=== PATIENT | female | born 1990 | race Caucasian/White ===

== ENCOUNTER 2019-07-26 08:16 | Emergency (ER) | payer MEDICAID ==
--- NOTE | 2019-07-26 08:25 | ED ---
Lower Extremity - HPI Summary HPI Summary: 29-year-old female with no significant past medical history presents to the emergency department today after a mechanical fall this morning. She states she was coming down the stairs and reached the floor at the bottom when she slipped on a toy which caused her to roll her right ankle and fall. She states she has 5 out of 10 pain to the lateral right ankle and she is unable to ambulate or weight-bear. She denies use of anticoagulation. She denies syncope or other trauma associated with her fall. She denies fever, chills, knee pain, shortness of breath, chest pain, abdominal pain, pain with urination. - History of Current Complaint Stated Complaint: FALL RIGHT ANLKE PAIN Time Seen by Provider: 07/26/19 08:25 Hx Obtained From: Patient Mechanism Of Injury: Fall From A Standing Position Onset of Pain: Immediate Onset/Duration: Hours Severity Initially: Moderate Severity Currently: Moderate Pain Intensity: 5 Pain Scale Used: 0-10 Numeric Timing: Constant Location: Is Discrete @ - right lateral ankle Associated Signs And Symptoms: Positive: Swelling. Negative: Redness, Bruising , Knee Pain Aggravating Factor(s): Standing, Ambulation, Movement, Weight Bearing, Stairs Alleviating Factor(s): Rest, Elevation, Ice - Allergies/Home Medications Allergies/Adverse Reactions: Allergies Allergy/AdvReac Type Severity Reaction Status Date / Time No Known Allergies Allergy Verified 07/26/19 08:27 Review of Systems Constitutional: Negative Eyes: Negative ENT: Negative Cardiovascular: Negative Respiratory: Negative Gastrointestinal: Negative Genitourinary: Negative Positive: Arthralgia, Decreased ROM, Edema Skin: Negative Neurological: Negative Psychological: Normal All Other Systems Reviewed And Are Negative: Yes Physical Exam - Summary Physical Exam Summary: Inspection of the right ankle reveals no ecchymosis however there is moderate amount of edema to the right lateral malleolus. Her cells P his pulse 2+ bilaterally with brisk capillary refill bilaterally. She has decreased range of motion in the right ankle due to pain. There is no tenderness to palpation of the talus bone, metatarsal bones, tarsal bones, medial malleolus however there is significant tenderness palpation to the lateral malleolus. Anterior posterior drawer of the ankle are negative. Triage Information Reviewed: Yes Vital Signs Reviewed: Yes Appearance: Positive: Well-Appearing, No Pain Distress, Well-Nourished Skin: Positive: Warm, Skin Color Reflects Adequate Perfusion Eyes: Positive: EOMI, HARRISON ENT: Positive: Hearing grossly normal Respiratory/Lung Sounds: Positive: Clear to Auscultation, Breath Sounds Present Cardiovascular: Positive: RRR, S1, S2 Neurological: Positive: Sensory/Motor Intact, Alert, Oriented to Person Place, Time, Abnormal Gait Psychiatric: Positive: Normal AVPU Assessment: Alert Procedures - Sedation Patient Received Moderate/Deep Sedation with Procedure: No - Splinting Right Lower Extremity Pre-Made Type: aircast Pre-Proc Neuro Vasc Exam: normal Post-Proc Neuro Vasc Exam: normal Splint Applied by Provider: Devendra Duran Lower Extremity Course/Dx - Course Course Of Treatment: Patient was evaluated in the emergency department for right ankle pain. The patient seen and evaluated her vital signs were stable and she was afebrile. An x-ray of the right ankle was obtained which revealed a small chip fracture of the lateral malleolus. It is also likely she sustained a lateral ankle sprain as well. She is placed in an Aircast and given crutches and told to treat her injury with RICE therapy and ibuprofen for pain. She was told to follow-up with her primary care provider or orthopedics within 7 days for further evaluation and management of her symptoms. She was told to return to emergency department immediately if she developed any new or worsening symptoms. Patient agreed with this plan. - Diagnoses Differential Diagnosis/HQI/PQRI: Positive: Fracture (Closed), Sprain, Strain Provider Diagnoses: Right ankle sprain, Ankle fracture, right Discharge ED - Sign-Out/Discharge Documenting (check all that apply): Patient Departure - Discharge Plan Condition: Stable Disposition: HOME Patient Education Materials: Ankle Fracture (ED), R.I.C.E. Treatment (ED) Referrals: No Primary Care Phys,NOPCP [Primary Care Provider] - Omar Louise MD [Medical Doctor] - 5 Days Additional Instructions: You were seen in the emergency department for right ankle pain. An x-ray was done which showed a small fracture to the lateral malleolus. It is also likely you sustained a right ankle sprain. This fracture is small and will heal on its own. Please rest, ice, elevate your ankle for alleviation of symptoms. Please keep your ankle in the air cast splint and use your crutches as needed. You may also take ibuprofen 600 mg every 6 hours as needed for pain. Please follow up with your primary care physician or an orthopedist within 7 days for further evaluation and management of your ankle. Weight-bear as tolerated. Please return to the emergency department immediately if you develop any new or worsening symptoms. - Billing Disposition and Condition Condition: STABLE Disposition: Home
[2019-07-26] MEDS ORDERED: Ibuprofen TAB* 600 MG PO ONE (09:03)
[2019-07-26 09:34] VITALS: BP 129/79
== END 2019-07-26 09:30 | disposition home or self-care (01) ==
LOC: ED 08:16
DX: S82.61XA Displaced fracture of lateral malleolus of right fibula, initial encounter for closed fracture (principal); W18.09XA Striking against other object with subsequent fall, initial encounter; Y92.009 Unspecified place in unspecified non-institutional (private) residence as the place of occurrence of the external cause
CPT/HCPCS: 99282; A9270-GY

== ENCOUNTER 2019-10-21 21:00 | Emergency (ER) | payer MEDICAID, OTHER ==
--- OUTSIDE RECORDS SUMMARY | 2019-10-21 21:06 | XMS REPORT | Continuity of Care Document ---
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 Problems Description No Information Available Social History Type Date Description Comments Sex Unknown ETOH Use Denies alcohol use Tobacco Use Start: Unknown Patient has never smoked Smoking Status Reviewed: 09/23/19 Patient has never smoked Exercise Type/Frequency Exercises sporadically Allergies, Adverse Reactions, Alerts Active Allergies Reaction Severity Comments Date Adhesive 08/04/2019 Medications Description No Active Medications Immunizations Description No Information Available Vital Signs Date Vital Result Comment 09/23/2019 10:15am Heart Rate 100 /min BP Systolic 130 mmHg BP Diastolic 80 mmHg Respiratory Rate 18 /min Body Temperature 98.6 F Pain Level 0 08/04/2019 1:20pm Height 66 inches 5'6" Weight 245.50 lb Heart Rate 108 /min BP Systolic 118 mmHg BP Diastolic 70 mmHg Respiratory Rate 16 /min Pain Level 6 BMI (Body Mass Index) 39.6 kg/m2 Results Description No Information Available Procedures Description No Information Available Medical Devices Description No Information Available Encounters Type Date Location Provider Dx Diagnosis Office Visit 08/04/2019 [facility] Omar Louise, S93.491A Sprain of other 1:15p at [place] ligament of right ankle, initial encounter Assessments Date Code Description Provider 09/23/2019 S93.491A Sprain of other ligament of right ankle, Omar Louise MD initial encounter 08/04/2019 S93.491A Sprain of other ligament of right ankle, Omar Louise MD initial encounter Plan of Treatment 09/23/2019 - LUIS ENRIQUE [id number] Sprain of other ligament of right ankle, initial encounterFollow up:Follow Up: As needed Functional Status Description No Information Available Mental Status Description No Information Available Referrals Description No Information Available
[2019-10-21 21:23] VITALS: BP 153/103
--- NOTE | 2019-10-21 22:09 | UC ---
Throat Pain/Nasal Buzz HPI - HPI Summary HPI Summary: 1 WEEK OF SORE THROAT AND PAIN WITH SWALLOWING. PATIENT HAS LOST HER VOICE. STATES SHE HAD SOME SINUS PAIN INITIALLY BUT THAT HAS SINCE RESOLVED. NO FEVER. NO NAUSEA/VOMITING. NO COUGH OR EAR PAIN. NO LONGER HAS TONSILS. - History of Current Complaint Chief Complaint: UCGeneralIllness Stated Complaint: SORE THROAT Time Seen by Provider: 10/21/19 21:44 Hx Obtained From: Patient Hx Last Menstrual Period: 10/10/19 Onset/Duration: Gradual Onset, Lasting Days, Still Present Severity: Moderate Pain Intensity: 7 Pain Scale Used: 0-10 Numeric Cough: None Associated Signs & Symptoms: Positive: Hoarseness - Allergies/Home Medications Allergies/Adverse Reactions: Allergies Allergy/AdvReac Type Severity Reaction Status Date / Time No Known Allergies Allergy Verified 10/21/19 21:17 Home Medications: Home Medications predniSONE 20 mg TAB [Deltasone 20 MG TAB*] 40 mg PO DAILY #8 tab 10/21/19 [Rx] PMH/Surg Hx/FS Hx/Imm Hx Previously Healthy: Yes - Surgical History Surgery Procedure, Year, and Place: T&A. right knee surgery - Family History Known Family History: Positive: Non-Contributory - Social History Alcohol Use: None Substance Use Type: None Smoking Status (MU): Never Smoked Tobacco Review of Systems All Other Systems Reviewed And Are Negative: Yes Constitutional: Positive: Negative ENT: Positive: Sore Throat Respiratory: Positive: Negative Cardiovascular: Positive: Negative Gastrointestinal: Positive: Negative Physical Exam Triage Information Reviewed: Yes Appearance: Well-Appearing, No Pain Distress, Well-Nourished Vital Signs: Initial Vital Signs Temp 98.2 F 10/21/19 21:17 Pulse 115 10/21/19 21:17 Resp 18 10/21/19 21:17 BP 153/103 10/21/19 21:17 Pulse Ox 97 10/21/19 21:17 Laboratory Tests 10/21/19 21:47 Group A Strep Rapid Negative Vital Signs Reviewed: Yes Eyes: Positive: Conjunctiva Clear ENT: Positive: Hearing grossly normal, Pharynx normal, Other - RIGHT TM SLIGHTLY ERYTHEMATOUS Neck: Positive: Supple, Nontender, No Lymphadenopathy Respiratory Exam: Normal Cardiovascular Exam: Normal Abdomen Description: Positive: Soft Musculoskeletal: Positive: No Edema Neurological: Positive: Alert Psychological: Positive: Age Appropriate Behavior Skin: Negative: Rashes Throat Pain/Nasal Course/Dx - Course Course Of Treatment: STREP NEGATIVE. RIGHT TM EVER SO SLIGHTLY ERYTHEMATOUS WHEN COMPARED TO THE LEFT HOWEVER PATIENT HAS NO EAR PAIN AND NO FEVER. ADVISED TO BE VIGILANT OF HER SYMPTOMS. WILL NOT TREAT FOR OTITIS AT THIS TIME. LIKELY VIRALLY MEDIATED SYMPTOMS THAT SHOULD RESOLVE ON THEIR OWN. WILL GIVE A SHORT BURST OF PREDNISONE TO HELP WITH THE INFLAMMATION. FOLLOW-UP IF NEEDED. - Differential Dx/Diagnosis Provider Diagnosis: Acute laryngitis Discharge ED - Sign-Out/Discharge Documenting (check all that apply): Patient Departure All imaging exams completed and their final reports reviewed: No Studies - Discharge Plan Condition: Stable Disposition: HOME Prescriptions: predniSONE 20 mg TAB [Deltasone 20 MG TAB*] 40 mg PO DAILY #8 tab Patient Education Materials: Laryngitis (ED) Referrals: [facility] [Outside] - If Needed Additional Instructions: STREP TEST NEGATIVE. YOUR SYMPTOMS ARE LIKELY VIRALLY MEDIATED AND SHOULD RESOLVE WITH TIME. NO INDICATION FOR ANTIBIOTICS AT PRESENT. REST, HYDRATE, OTC MEDS NEEDED. WILL TREAT WITH PREDNISONE THIS MAY HELP WITH THE INFLAMMATION. FOLLOW-UP IF YOU'RE NOT IMPROVING OVER THE NEXT FEW DAYS. CALL THE NUMBER BELOW FOR ASSISTANCE IN ESTABLISHING WITH A PCP An additional resource available to assist in finding the appropriate physician for your health care needs is [facility] ([facility]). You may contact them by calling [phone] - Billing Disposition and Condition Condition: STABLE Disposition: Home
== END 2019-10-21 22:15 | disposition home or self-care (01) ==
LOC: UCEAST 21:00
DX: J04.0 Acute laryngitis (principal)
CPT/HCPCS: 87651; 99212; G0463; J7512

== ENCOUNTER 2023-07-24 08:17 | Inpatient (IN) ==
[2023-07-24] MEDS ORDERED: Buffered Lidocaine 1% SYRIN 1 ml INTRADERM ONE (09:32)
[2023-07-24] MEDS ORDERED: Lidocaine 1% VIAL 10 MG/ML 30 ML VIAL INJ PRN (09:32)
[2023-07-24] MEDS ORDERED: Lactated Ringers 1000 ml BAG 1,000 ML IV ONE ×2 (09:32→21:59)
[2023-07-24] MEDS: Lactated Ringers 1000 ml BAG 1,000 ML IV SCH ×3 (10:00→21:45)
[2023-07-24] MEDS: Oxytocin in LR 20,000 MILLI.UNIT/1,000 ML BAG IV SCH (10:02)
[2023-07-24 10:15] LABS: ABS Lymphocytes 1.9 10^3/uL (1.0-4.8); ABS Monocytes 0.7 10^3/uL (0.0-0.9); ABS Neutrophils 6.3 10^3/uL (1.5-7.6); ABS Nucleated RBC 0.01 10^3/ul; Eosinophil % 0.5 %; Hematocrit 36.5 % (35-45); Hemoglobin 12.7 g/dL (11.5-14.3); Lymphocyte % 21.5 %; Mean Corpuscular Hemoglobin 30.3 pg (27-33); Mean Corpuscular Hgb Conc 34.8 g/dL (31-36); Mean Corpuscular Volume 87.3 fL (80-97); Mean Platelet Volume 8.3 fL (7.5-11.2); Nucleated Red Blood Cells % 0.1 %/100WBC (0.0-0.8); Platelet Count 264 10^3/uL (150-450); Red Blood Count 4.18 10^6/uL (3.63-4.92); Red Cell Distribution Width 13.8 % (12-17)
[2023-07-24 12:46] LABS: Albumin 3.6 g/dL (3.2-5.2); Albumin/Globulin Ratio 1.3 (1-3); Calcium 9.4 mg/dL (8.6-10.3); Creatinine, Serum 0.67 mg/dL (0.51-0.95); Globulin 2.7 g/dL (2-4); Potassium 3.9 mmol/L (3.5-5.0); Total Bilirubin 0.3 mg/dL (0.2-1.0); Total Protein 6.3 g/dL (6.4-8.9); eGFR CKD-EPI 118.3 (>60)
[2023-07-24 14:31] LABS: Urine Benzodiazepine Screen None Detected (None Detect); Urine Cannabinoids Screen None Detected (None Detect); Urine Opiates Screen None Detected (None Detect)
[2023-07-24] MEDS ORDERED: Penicillin G Potassium IV 5,000,000 UNITS in NS 0.9% 100 ml BAG 100 ML IVPB ONE (16:54)
[2023-07-24] MEDS ORDERED: Lidocaine 1.5% EPI 1:200,000 30 ML SDV ONE (21:10)
[2023-07-24] MEDS ORDERED: OBEPIDURAL (200 ML) 200 ML EPIDURAL ONE (21:10)
[2023-07-24] MEDS ORDERED: Phenylephrine 40 mcg/mL 10mL (400mcg) SYRINGE IV PUSH PRN ×2 (21:59)
[2023-07-24] MEDS ORDERED: Sodium Citrate/Citric Acid LIQ 15 ML UDC PO PRN (21:59)
[2023-07-24] MEDS ORDERED: OBEPIDURAL (200 ML) 200 ML EPIDURAL SCH (22:00)
[2023-07-24] MEDS: Penicillin G Potassium IV 3,000,000 UNITS in NS 0.9% 100 ml BAG 100 ML IVPB SCH (22:00)
[2023-07-25] MEDS: Penicillin G Potassium IV 3,000,000 UNITS in NS 0.9% 100 ml BAG 100 ML IVPB SCH ×2 (02:00→06:00)
[2023-07-25] MEDS: Lactated Ringers 1000 ml BAG 1,000 ML IV SCH (02:40)
[2023-07-25] MEDS: Oxytocin in LR 20,000 MILLI.UNIT/1,000 ML BAG IV SCH (06:03)
[2023-07-25] MEDS ORDERED: Dibucaine 1% OINT 28.35 GM TUBE PR PRN (08:47)
[2023-07-25] MEDS ORDERED: Witch Hazel PAD JAR TOPICAL PRN (08:47)
[2023-07-25] MEDS ORDERED: Oxytocin in LR 20,000 MILLI.UNIT/1,000 ML BAG IV SCH (08:50)
[2023-07-25] MEDS ORDERED: Lactated Ringers 1000 ml BAG 1,000 ML IV SCH (09:00)
[2023-07-25 19:24] LABS: Urine Appearance Cloudy; Urine Bilirubin Negative (Negative); Urine Blood 1+ (Negative); Urine Color Yellow; Urine Glucose Negative (Negative); Urine Ketones 1+ (Negative); Urine Nitrite Negative (Negative); Urine Protein Negative (Negative); Urine Specific Gravity 1.017 (1.002-1.030); Urine Urobilinogen Negative (Negative)
[2023-07-25 19:41] LABS: Urine Bacteria Absent (Absent); Urine Red Blood Cell 3+(>10/hpf) (Absent); Urine Squamous Epithelial Cell Present (Absent); Urine White Blood Cell Trace(0-5/hpf) (Absent)
[2023-07-26 07:28] LABS: ABS Eosinophils 0.1 10^3/uL (0.0-0.5); ABS Lymphocytes 2.1 10^3/uL (1.0-4.8); ABS Monocytes 0.7 10^3/uL (0.0-0.9); ABS Neutrophils 8.4 10^3/uL (1.5-7.6); Eosinophil % 0.9 %; Hemoglobin 10.3 g/dL (11.5-14.3); Lymphocyte % 18.6 %; Mean Corpuscular Hemoglobin 29.8 pg (27-33); Mean Corpuscular Hgb Conc 33.3 g/dL (31-36); Mean Corpuscular Volume 89.6 fL (80-97); Mean Platelet Volume 8.3 fL (7.5-11.2); Platelet Count 210 10^3/uL (150-450); Red Blood Count 3.46 10^6/uL (3.63-4.92); Red Cell Distribution Width 13.9 % (12-17); White Blood Count 11.3 10^3/uL (3.8-11.8)
[2023-07-27 07:56] VITALS: BP 134/77
== END 2023-07-27 11:45 | disposition home or self-care (01) | DRG 560 ==
LOC: MCHOBOUT 08:17 → MCHOB 08:47
PROVIDERS: ADMIT Midwife; ATTEND Midwife